=== PATIENT | female | born 1990 | race Caucasian/White ===

== ENCOUNTER 2017-04-01 00:15 | Emergency (ER) | payer MEDICAID ==
[2017-04-01 00:27] VITALS: BP 149/87
[2017-04-01] MEDS ORDERED: Ketorolac 60 MG/2 ML SDV IM ONE (00:58)
--- NOTE | 2017-04-01 01:01 | EDM.PDOC ---
ED HPI GENERAL MEDICAL PROBLEM - General Chief Complaint: Upper Extremity Injury/Pain Stated Complaint: R HAND INJURY Time Seen by Provider: 04/01/17 00:53 Source of Information: Reports: Patient, Old Records, RN Notes Reviewed History Limitations: Reports: No Limitations - History of Present Illness INITIAL COMMENTS - FREE TEXT/NARRATIVE: 26-year-old female presents emergency department day complaint of right wrist pain she does have a history of navicular fracture was playing volleyball earlier this evening and now she is experiencing pain and numbness tingling in the thumb. Right Wrist Pain Score (Numeric/FACES): 8 - Related Data Allergies Allergy/AdvReac Type Severity Reaction Status Date / Time acetaminophen Allergy Vomiting Verified 04/01/17 00:27 [From Darvocet-N 100] codeine phosphate Allergy Rash Verified 04/01/17 00:27 [From Tylenol-Codeine #3] propoxyphene napsylate Allergy Vomiting Verified 04/01/17 00:27 [From Darvocet-N 100] doxycycline AdvReac Nausea and Verified 04/01/17 00:27 Vomiting Home Meds: Home Meds Cyanocobalamin (Vitamin B-12) [Vitamin B-12] 1,000 mcg PO Q21D 11/26/13 [History ] Levonorgestrel [Mirena] 1 each IY ONCALL 11/26/13 [History] Gabapentin [Gabapentin] 600 mg PO DAILY 02/13/15 [History] traMADol HCl [Tramadol HCl] 50 mg PO DAILY 02/13/15 [History] Past Medical History Genitourinary History: Reports: UTI, 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: Musculoskeletal History: Reports: Back Pain, Chronic, Fracture, Other (See Below ) Other Musculoskeletal History: Current fracture right wrist Hematologic History: Reports: B12 Deficiency - Infectious Disease History Infectious Disease History: Reports: Chicken Pox - Past Surgical History HEENT Surgical History: Reports: Oral Surgery GI Surgical History: Reports: Bariatric Procedure, Cholecystectomy Other Musculoskeletal Surgeries/Procedures:: BULDGING DISC Social & Family History - Tobacco Use Smoking Status *Q: Unknown Ever Smoked Years of Tobacco use: 15 Packs/Tins Daily: 0.5 Used Tobacco, but Quit: No Month Tobacco Last Used: JANUARY Second Hand Smoke Exposure: Yes - Caffeine Use Caffeine Use: Reports: Energy Drinks, Soda Caffeine Use Comment: 6 pack day - Alcohol Use Days Per Week of Alcohol Use: 0 - Recreational Drug Use Recreational Drug Use: No Review of Systems - Review of Systems Review Of Systems: See Below Musculoskeletal: Reports: Joint Pain (Wrist pain) ED EXAM, GENERAL - Physical Exam Exam: See Below Free Text/Narrative:: Examination of the right wrist I don't appreciate a erythema there is no edema she is tender both anterior and posterior aspects of the wrist she has limited range of motion secondary to pain, radial pulse is +2 there is no tenderness at the elbow Exam Limited By: No Limitations General Appearance: Alert, WD/WN, No Apparent Distress Course - Vital Signs Last Recorded V/S: Last Vital Signs Temp 97.5 F 04/01/17 00:24 Pulse 86 04/01/17 00:24 Resp 15 04/01/17 00:24 BP 149/87 H 04/01/17 00:24 Pulse Ox 100 04/01/17 00:24 - Orders/Labs/Meds Orders: Active Orders 24 hr Category Date Time Status Wrist 2V Rt [CR] Stat Exams 04/01/17 00:58 Taken Meds: Medications Discontinued Medications Generic Name Dose Route Start Last Admin Trade Name Gama PRN Reason Stop Dose Admin Ketorolac Tromethamine 60 mg 04/01/17 00:58 04/01/17 01:03 Toradol IM 04/01/17 00:59 60 mg ONETIME ONE Administration Departure - Departure Time of Disposition: 01:35 Disposition: Home, Self-Care 01 Condition: Good Clinical Impression: Right wrist pain - Discharge Information Referrals: Faith Douglas NP [Primary Care Provider] - Forms: ED Department Discharge Additional Instructions: Use hydrocodone as needed for pain control, please follow-up with orthopedics next week they will call you with an appointment time - My Orders Last 24 Hours: My Active Orders 04/01/17 00:58 Wrist 2V Rt [CR] Stat - Assessment/Plan Last 24 Hours: My Active Orders 04/01/17 00:58 Wrist 2V Rt [CR] Stat Plan: Assessment Acuity = acute Site and laterality = possible ulnar styloid fracture Etiology = secondary trauma Manifestations = pain Location of injury = Home Lab values = does have a history of a complex fracture of both radius and ulnar , new film difficult to tell if there is a new fracture with all the old healing there are bone fragments around the styloid process official read radiology is pending Plan She is placed in ulnar gutter splint have her follow-up with orthopedics next week, total #20 hydrocodone written for pain control Patient was in agreement with the plan all questions were answered, they were instructed to return to the emergency department or call for worsening symptoms. This note was dictated using Proximetry voice recognition software please call with any questions.
--- NOTE | 2017-04-01 08:42 | CR ---
Wrist 2V Rt HISTORY: Pain COMPARISON: 03/04/2016. FINDINGS: Old injury to the ulnar styloid. The previously seen radial metaphyseal fracture last year has healed. No new fracture seen.
== END 2017-04-01 01:48 | disposition home or self-care (01) ==
LOC: JP.ED 00:15
DX: M25.531 Pain in right wrist (principal); Z87.440 Personal history of urinary (tract) infections; Z98.84 Bariatric surgery status; Z90.49 Acquired absence of other specified parts of digestive tract; Z98.890 Other specified postprocedural states; Z79.899 Other long term (current) drug therapy; Z88.1 Allergy status to other antibiotic agents; Z88.5 Allergy status to narcotic agent; Z88.8 Allergy status to other drugs, medicaments and biological substances; Y93.68 Activity, volleyball (beach) (court)
CPT/HCPCS: 29125; 73100; 96372; 99284; J1885

== ENCOUNTER 2017-04-23 19:44 | Emergency (ER) | payer MEDICAID ==
[2017-04-23 19:57] VITALS: BP 122/76
--- NOTE | 2017-04-23 20:12 | EDM.PDOC ---
ED HPI GENERAL MEDICAL PROBLEM - General Chief Complaint: Upper Extremity Injury/Pain Stated Complaint: RIGHT ARM PAIN Time Seen by Provider: 04/23/17 20:08 Source of Information: Reports: Patient History Limitations: Reports: No Limitations - History of Present Illness INITIAL COMMENTS - FREE TEXT/NARRATIVE: With right wrist fracture in 2016. Now with new fracture about 3 1/2 weeks ago. Was supposed to be wearing a splint but was not. Stephanie tripped over her dog landing on the door frame about 7:30pm stephanie. Onset: Today Onset Date: 04/23/17 Onset Time: 19:30 Location: Reports: Upper Extremity, Right Quality: Reports: Sharp, Stabbing Severity: Mild Improves with: Reports: Rest Worsens with: Reports: None Context: Reports: Trauma Associated Symptoms: Reports: No Other Symptoms right wrist Pain Score (Numeric/FACES): 10 - Related Data Allergies Allergy/AdvReac Type Severity Reaction Status Date / Time acetaminophen Allergy Vomiting Verified 04/23/17 20:01 [From Darvocet-N 100] codeine phosphate Allergy Rash Verified 04/23/17 20:01 [From Tylenol-Codeine #3] propoxyphene napsylate Allergy Vomiting Verified 04/23/17 20:01 [From Darvocet-N 100] doxycycline AdvReac Nausea and Verified 04/23/17 20:01 Vomiting Home Meds: Home Meds Cyanocobalamin (Vitamin B-12) [Vitamin B-12] 1,000 mcg IM Q21D 11/26/13 [History ] Levonorgestrel [Mirena] 1 each IY ONCALL 11/26/13 [History] Past Medical History Cardiovascular History: Reports: None Respiratory History: Reports: None Genitourinary History: Reports: UTI, 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: Musculoskeletal History: Reports: Back Pain, Chronic, Fracture, Other (See Below ) Other Musculoskeletal History: Current fracture right wrist Neurological History: Reports: None Psychiatric History: Reports: None Endocrine/Metabolic History: Reports: None Hematologic History: Reports: B12 Deficiency Immunologic History: Reports: None Oncologic (Cancer) History: Reports: None Dermatologic History: Reports: None - Infectious Disease History Infectious Disease History: Reports: None - Past Surgical History Head Surgeries/Procedures: Reports: None HEENT Surgical History: Reports: Oral Surgery Cardiovascular Surgical History: Reports: None Respiratory Surgical History: Reports: None GI Surgical History: Reports: Bariatric Procedure, Cholecystectomy Endocrine Surgical History: Reports: None Neurological Surgical History: Reports: None Musculoskeletal Surgical History: Reports: Other (See Below) Other Musculoskeletal Surgeries/Procedures:: BULDGING DISC Oncologic Surgical History: Reports: None Dermatological Surgical History: Reports: None Social & Family History - Tobacco Use Smoking Status *Q: Current Every Day Smoker Years of Tobacco use: 15 Packs/Tins Daily: 0.5 Used Tobacco, but Quit: No Month Tobacco Last Used: JANUARY Second Hand Smoke Exposure: Yes - Caffeine Use Caffeine Use: Reports: Coffee, Energy Drinks, Soda, Tea Caffeine Use Comment: 6 pack day - Alcohol Use Days Per Week of Alcohol Use: 0 - Recreational Drug Use Recreational Drug Use: No Review of Systems - Review of Systems Review Of Systems: See Below Constitutional: Reports: No Symptoms Respiratory: Reports: No Symptoms Cardiovascular: Reports: No Symptoms Musculoskeletal: Reports: Arm Pain Skin: Reports: No Symptoms ED EXAM, GENERAL - Physical Exam Exam: See Below Exam Limited By: No Limitations General Appearance: Alert, WD/WN, No Apparent Distress Extremities: Arm Pain (over the ulna with palpation) Neurological: Alert, Oriented, CN II-XII Intact, Normal Cognition, Normal Gait, Normal Reflexes, No Motor/Sensory Deficits Skin Exam: Warm, Dry, Intact, Normal Color, No Rash Course - Vital Signs Last Recorded V/S: Last Vital Signs Temp 97.2 F 04/23/17 19:56 Pulse 77 04/23/17 19:56 Resp 16 04/23/17 19:56 BP 122/76 04/23/17 19:56 Pulse Ox 99 04/23/17 19:56 - Orders/Labs/Meds Orders: Active Orders 24 hr Category Date Time Status Wrist 2V Rt [CR] Stat Exams 04/23/17 20:12 Taken Departure - Departure Time of Disposition: 20:31 Disposition: Home, Self-Care 01 Condition: Good Clinical Impression: Wrist fracture, right Qualifiers: Encounter type: sequela Fracture type: closed Qualified Code(s): S62.101S - Fracture of unspecified carpal bone, right wrist, sequela - Discharge Information Instructions: Cast or Splint Care, [id number] Referrals: PCP,None [Primary Care Provider] - Forms: ED Department Discharge Additional Instructions: Xray reveals continued ulnar stylus fracture. No change from previous film. Stressed the need to pt to wear her splint and followup with orthopedics to discuss casting. Pt does not take calcium and does smoke so recommend Calcium supplement as well as smoking cessation. Will call orthopedics on Tuesday for followup. - Problem List & Annotations (1) Right wrist pain SNOMED Code(s): 63872875 Code(s): M25.531 - PAIN IN RIGHT WRIST Status: Acute Priority: Low Current Visit: No - My Orders Last 24 Hours: My Active Orders 04/23/17 20:12 Wrist 2V Rt [CR] Stat - Assessment/Plan Last 24 Hours: My Active Orders 04/23/17 20:12 Wrist 2V Rt [CR] Stat
--- NOTE | 2017-04-25 09:22 | CR ---
Wrist 2V Rt INDICATION: fall, hx of wrist fracture about 3 weeks ago COMPARISON: 04/01/2017 FINDINGS: 3 views. Bones are osteopenic. Ulnar styloid fracture again noted. Overall, no interval change. If symptoms persist consider MRI.
== END 2017-04-23 20:45 | disposition left against medical advice (07) ==
LOC: JP.ED 19:44
DX: S52.611S Displaced fracture of right ulna styloid process, sequela (principal); F17.210 Nicotine dependence, cigarettes, uncomplicated; Z88.6 Allergy status to analgesic agent; Z88.5 Allergy status to narcotic agent; Z88.1 Allergy status to other antibiotic agents; Z87.440 Personal history of urinary (tract) infections; W01.0XXS Fall on same level from slipping, tripping and stumbling without subsequent striking against object, sequela
CPT/HCPCS: 73100-26-RT; 73100-RT; 99284

== ENCOUNTER 2017-07-14 12:31 | Emergency (ER) | payer MEDICAID ==
[2017-07-14 12:50] VITALS: BP 127/69
--- NOTE | 2017-07-14 13:19 | EDM.PDOC ---
ED HPI GENERAL MEDICAL PROBLEM - General Chief Complaint: Back Pain or Injury Stated Complaint: BACK SPASMS Time Seen by Provider: 07/14/17 13:12 Source of Information: Reports: Patient History Limitations: Reports: No Limitations - History of Present Illness INITIAL COMMENTS - FREE TEXT/NARRATIVE: Pt arrived with pain in her lower back. She has pain radiating down the rt leg. Onset: Gradual Duration: Day(s):, Other Associated Symptoms: Reports: No Other Symptoms Right Lower Back Pain Score (Numeric/FACES): 9 - Related Data Allergies Allergy/AdvReac Type Severity Reaction Status Date / Time acetaminophen Allergy Vomiting Verified 07/14/17 12:50 [From Darvocet-N 100] codeine phosphate Allergy Rash Verified 07/14/17 12:50 [From Tylenol-Codeine #3] propoxyphene napsylate Allergy Vomiting Verified 07/14/17 12:50 [From Darvocet-N 100] doxycycline AdvReac Nausea and Verified 07/14/17 12:50 Vomiting Home Meds: Home Meds NK [No Known Home Meds] 07/14/17 [History] Past Medical History Cardiovascular History: Reports: None Respiratory History: Reports: None Genitourinary History: Reports: UTI, 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: Musculoskeletal History: Reports: Back Pain, Chronic, Fracture, Other (See Below ) Other Musculoskeletal History: Current fracture right wrist Neurological History: Reports: None Psychiatric History: Reports: None Endocrine/Metabolic History: Reports: None Hematologic History: Reports: B12 Deficiency Immunologic History: Reports: None Oncologic (Cancer) History: Reports: None Dermatologic History: Reports: None - Infectious Disease History Infectious Disease History: Reports: None - Past Surgical History HEENT Surgical History: Reports: Oral Surgery Respiratory Surgical History: Reports: None GI Surgical History: Reports: Bariatric Procedure, Cholecystectomy Musculoskeletal Surgical History: Reports: Other (See Below) Other Musculoskeletal Surgeries/Procedures:: R L4, L5 BULDGING DISC REPAIR Social & Family History - Tobacco Use Smoking Status *Q: Unknown Ever Smoked Years of Tobacco use: 15 Packs/Tins Daily: 0.5 Used Tobacco, but Quit: No Month Tobacco Last Used: JANUARY Second Hand Smoke Exposure: Yes - Caffeine Use Caffeine Use: Reports: Coffee, Energy Drinks, Soda, Tea Caffeine Use Comment: 6 pack day - Alcohol Use Days Per Week of Alcohol Use: 0 - Recreational Drug Use Recreational Drug Use: No ED ROS GENERAL - Review of Systems Review Of Systems: See Below Constitutional: Reports: No Symptoms HEENT: Reports: No Symptoms Respiratory: Reports: No Symptoms Cardiovascular: Reports: No Symptoms Endocrine: Reports: No Symptoms GI/Abdominal: Reports: No Symptoms : Reports: No Symptoms Musculoskeletal: Reports: Other (pain in lower back. ) Skin: Reports: No Symptoms Neurological: Reports: Other ( radiculkar pain down the rt leg. ) Psychiatric: Reports: No Symptoms ED EXAM,LOWER BACK PAIN/INJURY - Physical Exam Exam: See Below Text/Narrative:: pt arrived with low back pain and pain over the rt buttock shooting down the back of her rt leg. She does not note weakness in the rt leg. She has had previous back surgery for a disc. She has been having symptoms for awhile but they are worse the last few days. Pt did lift her mattresses and she felt like she injuired her back. Exam Limited By: No Limitations General Appearance: Alert, Moderate Distress Ears: Normal TMs Nose: Normal Inspection Throat/Mouth: Normal Inspection Head: Atraumatic Neck: Normal Inspection Respiratory/Chest: No Respiratory Distress Cardiovascular: Regular Rate, Rhythm GI/Abdominal: Soft, Non-Tender Rectal (Female) Exam: Deferred Back Exam: Other (pt is tender over the lower lumbar area. she has a positive straight leg raising sign. ) Extremities: Normal Inspection Neurological: Alert Course - Vital Signs Last Recorded V/S: Last Vital Signs Temp 36.0 C 07/14/17 12:46 Pulse 100 07/14/17 12:46 Resp 14 07/14/17 12:46 BP 127/69 07/14/17 12:46 Pulse Ox 100 07/14/17 12:46 - Orders/Labs/Meds Meds: Medications Discontinued Medications Generic Name Dose Route Start Last Admin Trade Name Freq PRN Reason Stop Dose Admin Cyclobenzaprine HCl 10 mg 07/14/17 13:20 07/14/17 13:34 Flexeril PO 07/14/17 13:21 10 mg ONETIME ONE Administration Ketorolac Tromethamine 60 mg 07/14/17 13:20 07/14/17 13:33 Toradol IM 07/14/17 13:21 60 mg ONETIME ONE Administration - Re-Assessments/Exams Free Text/Narrative Re-Assessment/Exam: 07/14/17 14:31 pt was given torodol 60mg im and flexeril 10mg . Her pain is more tolerable. Departure - Departure Time of Disposition: 14:18 Disposition: Home, Self-Care 01 Condition: Fair Clinical Impression: Lumbar disc disease - Discharge Information Referrals: PCP,None [Primary Care Provider] - Forms: ED Department Discharge Care Plan Goals: rest, moist heat, or ice to lumbar area. flexeril 10mg bid to relax muscles, torodol 10mg q6h for pain. Hod[place] 5/325 q6h prn for severe pain #8 appt in [address] Elías Wood
[2017-07-14] MEDS ORDERED: Cyclobenzaprine 10 MG Tab PO ONE (13:20)
[2017-07-14] MEDS ORDERED: Ketorolac 60 MG/2 ML SDV IM ONE (13:20)
== END 2017-07-14 14:43 | disposition home or self-care (01) ==
LOC: JP.ED 12:31
DX: M51.86 Other intervertebral disc disorders, lumbar region (principal); Z88.1 Allergy status to other antibiotic agents; Z88.5 Allergy status to narcotic agent; Z88.8 Allergy status to other drugs, medicaments and biological substances
CPT/HCPCS: 96372; 99283; A9270; J1885

== ENCOUNTER 2018-01-28 11:38 | Emergency (ER) | payer MEDICAID ==
[2018-01-28 11:53] VITALS: BP 138/85
--- NOTE | 2018-01-28 13:05 | EDM.PDOC ---
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 She reports removal of mirena IUD 6 weeks ago without complication. She states she has soaked a super tampon in two hours. She reports unprotected intercourse since removal of IUD. - Related Data Allergies Allergy/AdvReac Type Severity Reaction Status Date / Time acetaminophen Allergy Vomiting Verified 01/28/18 11:52 [From Darvocet-N 100] codeine phosphate Allergy Rash Verified 01/28/18 11:52 [From Tylenol-Codeine #3] propoxyphene napsylate Allergy Vomiting Verified 01/28/18 11:52 [From Darvocet-N 100] doxycycline AdvReac Nausea and Verified 01/28/18 11:52 Vomiting Home Meds: Home Meds Gabapentin [Neurontin] 300 mg PO TID 01/28/18 [History] Multivitamin [Multivitamins] 1 tab PO DAILY 01/28/18 [History] Past Medical History Cardiovascular History: Reports: None Respiratory History: Reports: None Genitourinary History: Reports: UTI, Recurrent 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: Musculoskeletal History: Reports: Back Pain, Chronic, Fracture, Other (See Below ) Other Musculoskeletal History: Current fracture right wrist Neurological History: Reports: None Psychiatric History: Reports: None Endocrine/Metabolic History: Reports: None Hematologic History: Reports: B12 Deficiency Immunologic History: Reports: None Oncologic (Cancer) History: Reports: None Dermatologic History: Reports: None - Infectious Disease History Infectious Disease History: Reports: None - Past Surgical History Head Surgeries/Procedures: Reports: None HEENT Surgical History: Reports: Oral Surgery Respiratory Surgical History: Reports: None GI Surgical History: Reports: Bariatric Procedure, Cholecystectomy Musculoskeletal Surgical History: Reports: Other (See Below) Other Musculoskeletal Surgeries/Procedures:: R L4, L5 BULDGING DISC REPAIR Social & Family History - Tobacco Use Smoking Status *Q: Current Every Day Smoker Years of Tobacco use: 15 Packs/Tins Daily: 0.5 - Caffeine Use Caffeine Use: Reports: Coffee, Energy Drinks, Soda Caffeine Use Comment: 6 pack day - Recreational Drug Use Recreational Drug Use: Yes Recreational Drug Type: Reports: Methamphetamine Recreational Drug Last Use: 01/26/19 ED ROS GENERAL - Review of Systems Review Of Systems: See Below Constitutional: Denies: Fever, Chills, Malaise, Weakness HEENT: Reports: No Symptoms Respiratory: Reports: No Symptoms Cardiovascular: Reports: No Symptoms Endocrine: Reports: No Symptoms GI/Abdominal: Reports: Abdominal Pain, Other (She complains of cramping abdominal pain. ) : Reports: Irregular Menses, Other (Increased vaginal bleeding, soaking tampon in 2 hours. ). Denies: Flank Pain, Frequency, Hematuria, Urgency Musculoskeletal: Reports: No Symptoms Skin: Reports: No Symptoms Neurological: Reports: No Symptoms Psychiatric: Reports: No Symptoms Hematologic/Lymphatic: Reports: No Symptoms Immunologic: Reports: No Symptoms Free Text/Narrative/Comment: A2 ED EXAM, RENAL/ - Physical Exam Exam: See Below Text/Narrative:: Ros presents today for complaints of increased bright red vaginal bleeding for 24 hours. Exam Limited By: No Limitations General Appearance: Alert, WD/WN, No Apparent Distress Eye Exam: Bilateral Eye: EOMI, Normal Inspection, PERRL Ears: Normal External Exam, Normal Canal, Hearing Grossly Normal, Normal TMs Nose: Normal Inspection, Normal Mucosa, No Blood Throat/Mouth: Normal Inspection, Normal Lips, Normal Gums, Normal Oropharynx, Normal Voice, No Airway Compromise Head: Atraumatic, Normocephalic Neck: Normal Inspection, Supple, Non-Tender, Full Range of Motion. No: Lymphadenopathy (R), Lymphadenopathy (L) Respiratory/Chest: No Respiratory Distress, Lungs Clear, Normal Breath Sounds, No Accessory Muscle Use, Chest Non-Tender Cardiovascular: Normal Peripheral Pulses, Regular Rate, Rhythm, No Edema, No Murmur, No Rub GI/Abdominal: Normal Bowel Sounds, Soft, Non-Tender, No Organomegaly, No Distention, No Mass Back Exam: Normal Inspection, Full Range of Motion. No: CVA Tenderness (R), CVA Tenderness (L) Extremities: Normal Inspection, Normal Range of Motion, Non-Tender, No Pedal Edema, Normal Capillary Refill Neurological: Alert, Oriented, CN II-XII Intact, Normal Cognition, Normal Gait, Normal Reflexes, No Motor/Sensory Deficits Psychiatric: Normal Affect, Normal Mood Skin Exam: Warm, Dry, Intact, Normal Color, No Rash Lymphatic: No Adenopathy Course - Vital Signs Last Recorded V/S: Last Vital Signs Temp 35.7 C 01/28/18 11:53 Pulse 87 01/28/18 11:53 Resp 13 01/28/18 11:53 BP 138/85 01/28/18 11:53 Pulse Ox 96 01/28/18 11:53 - Orders/Labs/Meds Orders: Active Orders 24 hr Category Date Time Status Pelvis Non OB Comp [US] Stat Exams 01/28/18 12:49 Taken HCG QUALITATIVE,URINE [URCHEM] Stat Lab 01/28/18 14:08 Ordered UA W/MICROSCOPIC [URIN] Stat Lab 01/28/18 14:05 Ordered Labs: Laboratory Tests 01/28/18 01/28/18 01/28/18 Range/Units 12:59 12:59 14:05 WBC 5.6 (4.5-11.0) K/uL RBC 4.26 (3.30-5.50) M/uL Hgb 13.0 (12.0-15.0) g/dL Hct 39.2 (36.0-48.0) % MCV 92 (80-98) fL MCH 31 (27-31) pg MCHC 33 (32-36) % Plt Count 277 (150-400) K/uL Neut % (Auto) 61 (36-66) % Lymph % (Auto) 24 (24-44) % [place] % (Auto) 10 H (2-6) % Eos % (Auto) 6 H (2-4) % Baso % (Auto) 1 (0-1) % Sodium 139 L (140-148) mmol/L Potassium 3.8 (3.6-5.2) mmol/L Chloride 106 (100-108) mmol/L Carbon Dioxide 26 (21-32) mmol/L Anion Gap 10.8 (5.0-14.0) mmol/L BUN 9 (7-18) mg/dL Creatinine 0.9 (0.6-1.0) mg/dL Est Cr Clr Drug Dosing 93.04 mL/min Estimated GFR (MDRD) > 60 (>60) Glucose 126 H (74-106) mg/dL Calcium 8.8 (8.5-10.1) mg/dL Urine Color Yellow Urine Appearance Cloudy Urine pH 6.0 (4.5-8.0) Ur Specific [place] 1.020 (1.008-1.030) Urine Protein Negative (NEGATIVE) mg/dL Urine Glucose (UA) Normal (NEGATIVE) mg/dL Urine Ketones Negative (NEGATIVE) mg/dL Urine Occult Blood Large (NEGATIVE) Urine Nitrite Negative (NEGATIVE) Urine Bilirubin Small (NEGATIVE) Urine Urobilinogen 1 (NORMAL) mg/dL Ur Leukocyte Esterase Negative (NEGATIVE) Urine RBC 10-20 H (0-5) Urine WBC 5-10 H (0-5) Ur Epithelial Cells Few Amorphous Sediment Few Urine Bacteria Few Urine Mucus Few Urine HCG, Qual 01/28/18 Range/Units 14:08 WBC (4.5-11.0) K/uL RBC (3.30-5.50) M/uL Hgb (12.0-15.0) g/dL Hct (36.0-48.0) % MCV (80-98) fL MCH (27-31) pg MCHC (32-36) % Plt Count (150-400) K/uL Neut % (Auto) (36-66) % Lymph % (Auto) (24-44) % [place] % (Auto) (2-6) % Eos % (Auto) (2-4) % Baso % (Auto) (0-1) % Sodium (140-148) mmol/L Potassium (3.6-5.2) mmol/L Chloride (100-108) mmol/L Carbon Dioxide (21-32) mmol/L Anion Gap (5.0-14.0) mmol/L BUN (7-18) mg/dL Creatinine (0.6-1.0) mg/dL Est Cr Clr Drug Dosing mL/min Estimated GFR (MDRD) (>60) Glucose (74-106) mg/dL Calcium (8.5-10.1) mg/dL Urine Color Urine Appearance Urine pH (4.5-8.0) Ur Specific [place] (1.008-1.030) Urine Protein (NEGATIVE) mg/dL Urine Glucose (UA) (NEGATIVE) mg/dL Urine Ketones (NEGATIVE) mg/dL Urine Occult Blood (NEGATIVE) Urine Nitrite (NEGATIVE) Urine Bilirubin (NEGATIVE) Urine Urobilinogen (NORMAL) mg/dL Ur Leukocyte Esterase (NEGATIVE) Urine RBC (0-5) Urine WBC (0-5) Ur Epithelial Cells Amorphous Sediment Urine Bacteria Urine Mucus Urine HCG, Qual Negative Lab work reviewed. Meds: Medications Discontinued Medications Generic Name Dose Route Start Last Admin Trade Name Gama PRN Reason Stop Dose Admin Ibuprofen 800 mg 01/28/18 14:04 01/28/18 14:11 Motrin PO 01/28/18 14:05 800 mg ONETIME ONE Administration - Radiology Interpretation Free Text/Narrative:: US tech report, no acute or abnormal findings noted. Departure - Departure Time of Disposition: 14:24 Disposition: Home, Self-Care 01 Condition: Good Clinical Impression: Abnormal vaginal bleeding - Discharge Information Instructions: Dysfunctional Uterine Bleeding Referrals: PCP,None [Primary Care Provider] - Forms: ED Department Discharge Additional Instructions: You have been evaluated and treated for abnormal vaginal bleeding. You can take ibuprofen for pain and cramping. Keep yourself well hydrated. Your lab work today was normal and does not show any anemia at this time. The Ultrasound of your pelvis did not show any abnormalities. Urine test negative. It would be best for you to follow up with a woman's health provider, FOOD AND BEVERAGE COORDINATOR provider in the next 7 to 14 days for the abnormal vaginal bleeding. Return for worsening, issues or concerns. - My Orders Last 24 Hours: My Active Orders 01/28/18 12:49 Pelvis Non OB Comp [US] Stat 01/28/18 14:05 UA W/MICROSCOPIC [URIN] Stat 01/28/18 14:08 HCG QUALITATIVE,URINE [URCHEM] Stat - Assessment/Plan Last 24 Hours: My Active Orders 01/28/18 12:49 Pelvis Non OB Comp [US] Stat 01/28/18 14:05 UA W/MICROSCOPIC [URIN] Stat 01/28/18 14:08 HCG QUALITATIVE,URINE [URCHEM] Stat Assessment:: Abnormal vaginal bleeding Plan: Patietn evaluated and treated for abnormal vaginal bleeding. Take ibuprofen for pain and cramping. Keep well hydrated. Lab work today was normal and does not show any anemia at this time. The Ultrasound of pelvis did not show any abnormalities. It would be best for her to follow up with a woman's health provider, FOOD AND BEVERAGE COORDINATOR provider in the next 7 to 14 days for the abnormal vaginal bleeding. Return for worsening, issues or concerns.
[2018-01-28] MEDS ORDERED: Ibuprofen 800 MG Tab PO ONE (14:04)
--- NOTE | 2018-01-30 10:04 | US ---
Pelvis Non OB Comp INDICATION: abnormal vaginal bleeding TECHNIQUE: Transabdominal and transvaginal pelvic ultrasound performed. COMPARISON: Nothing recent. FINDINGS: The uterus is unremarkable. No evidence of mass. Endometrium: 8 mm. Ovaries and adnexa are unremarkable. No masses seen. Blood flow to both ovaries documented with color Doppler. No free fluid seen in the pelvis. IMPRESSION: Negative pelvic ultrasound.
== END 2018-01-28 14:45 | disposition home or self-care (01) ==
LOC: JP.ED 11:38
DX: N39.3 Stress incontinence (female) (male) (principal); F17.210 Nicotine dependence, cigarettes, uncomplicated; Z88.8 Allergy status to other drugs, medicaments and biological substances
CPT/HCPCS: 36415; 76856; 80048; 81001; 81025; 85025; 99284; A9270

== ENCOUNTER 2019-01-20 17:46 | Emergency (ER) | payer MEDICAID ==
[2019-01-20 18:02] VITALS: BP 101/74
[2019-01-20] MEDS ORDERED: Ketorolac 60 MG/2 ML SDV IM ONE (18:28)
[2019-01-20] MEDS ORDERED: Cyclobenzaprine 10 MG Tab PO ONE (18:29)
--- NOTE | 2019-01-20 18:33 | EDM.PDOC ---
ED HPI GENERAL MEDICAL PROBLEM - General Chief Complaint: Back Pain or Injury Stated Complaint: BAD BACK NOT AN ACCIDENT Time Seen by Provider: 01/20/19 18:12 Source of Information: Reports: Patient History Limitations: Reports: No Limitations - History of Present Illness INITIAL COMMENTS - FREE TEXT/NARRATIVE: 28 yo presents to ER with lumbar back pain. She does have hx of chronic pain but she was moving furniture last evening and strained her back. She denies loss of bowel or bladder, saddle numbness or particular traumatic injury. She has taken ibuprofen, tylenol abd naproxen with little relief Middle Back Pain Score (Numeric/FACES): 8 - Related Data Allergies Allergy/AdvReac Type Severity Reaction Status Date / Time acetaminophen Allergy Vomiting Verified 01/28/18 11:52 [From Darvocet-N 100] codeine phosphate Allergy Rash Verified 01/28/18 11:52 [From Tylenol-Codeine #3] propoxyphene napsylate Allergy Vomiting Verified 01/28/18 11:52 [From Darvocet-N 100] doxycycline AdvReac Nausea and Verified 01/28/18 11:52 Vomiting Home Meds: Home Meds Gabapentin [Neurontin] 300 mg PO BID 01/28/18 [History] Multivitamin [Multivitamins] 1 tab PO DAILY 01/28/18 [History] Past Medical History Cardiovascular History: Reports: None Respiratory History: Reports: None Genitourinary History: Reports: UTI, Recurrent 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: Musculoskeletal History: Reports: Back Pain, Chronic, Fracture, Other (See Below ) Other Musculoskeletal History: Current fracture right wrist Neurological History: Reports: None Psychiatric History: Reports: None Endocrine/Metabolic History: Reports: None Hematologic History: Reports: B12 Deficiency Immunologic History: Reports: None Oncologic (Cancer) History: Reports: None Dermatologic History: Reports: None - Infectious Disease History Infectious Disease History: Reports: None - Past Surgical History Head Surgeries/Procedures: Reports: None HEENT Surgical History: Reports: Oral Surgery Respiratory Surgical History: Reports: None GI Surgical History: Reports: Bariatric Procedure, Cholecystectomy Musculoskeletal Surgical History: Reports: Other (See Below) Other Musculoskeletal Surgeries/Procedures:: R L4, L5 BULDGING DISC REPAIR Social & Family History - Tobacco Use Smoking Status *Q: Current Every Day Smoker Years of Tobacco use: 20 Packs/Tins Daily: 0.5 - Caffeine Use Caffeine Use: Reports: Coffee, Soda Caffeine Use Comment: 6 pack day - Recreational Drug Use Recreational Drug Use: No ED ROS GENERAL - Review of Systems Review Of Systems: See Below Constitutional: Denies: Fever, Chills Respiratory: Denies: Shortness of Breath, Wheezing Cardiovascular: Denies: Chest Pain ED EXAM,LOWER BACK PAIN/INJURY - Physical Exam Exam: See Below Exam Limited By: Intoxication General Appearance: Alert, WD/WN, No Apparent Distress Respiratory/Chest: No Respiratory Distress, Lungs Clear, Normal Breath Sounds, No Accessory Muscle Use, Chest Non-Tender Cardiovascular: Regular Rate, Rhythm, No Murmur Back Exam: Muscle Spasm, Paraspinal Tenderness (bilateral L4-L6 then more to left lower area). No: CVA Tenderness (R), CVA Tenderness (L), Vertebral Tenderness Neurological: Alert Course - Vital Signs Last Recorded V/S: Last Vital Signs Temp 35.3 C 01/20/19 18:01 Pulse 84 01/20/19 18:01 Resp 16 01/20/19 18:01 BP 101/74 01/20/19 18:01 Pulse Ox 97 01/20/19 18:01 - Orders/Labs/Meds Meds: Medications Discontinued Medications Generic Name Dose Route Start Last Admin Trade Name Chrisq PRN Reason Stop Dose Admin Cyclobenzaprine HCl 10 mg 01/20/19 18:29 01/20/19 18:34 Flexeril PO 01/20/19 18:30 10 mg ONETIME ONE Administration Ketorolac Tromethamine 60 mg 01/20/19 18:28 01/20/19 18:34 Toradol IM 01/20/19 18:29 60 mg ONETIME ONE Administration - Re-Assessments/Exams Free Text/Narrative Re-Assessment/Exam: 01/20/19 19:24 pain relief with IM and oral medications Departure - Departure Time of Disposition: 19:24 Disposition: Home, Self-Care 01 Condition: Good Clinical Impression: Paraspinal muscle spasm - Discharge Information *PRESCRIPTION DRUG MONITORING PROGRAM REVIEWED*: No *COPY OF PRESCRIPTION DRUG MONITORING REPORT IN PATIENT HINA: No Instructions: Muscle Cramps and Spasms, [id number] Referrals: Wiliam Morse Sr, MD [Primary Care Provider] - Forms: ED Department Discharge Additional Instructions: cyclobenzaprine 10 mg up to three times per day for muscle spasm do not mix this medication with alcohol or you could stop breathing follow-up with your primary care doctor
== END 2019-01-20 19:34 | disposition home or self-care (01) ==
LOC: JP.ED 17:46
DX: M62.830 Muscle spasm of back (principal); Z88.6 Allergy status to analgesic agent; Z88.1 Allergy status to other antibiotic agents; Z79.899 Other long term (current) drug therapy; F17.210 Nicotine dependence, cigarettes, uncomplicated
CPT/HCPCS: 96372; 99283; A9270; J1885

== ENCOUNTER 2020-10-19 14:13 | Emergency (ER) | payer MEDICAID ==
[2020-10-19] MEDS ORDERED: Ketorolac 60 MG/2 ML SDV IM ONE (14:36)
[2020-10-19] MEDS ORDERED: Diphtheria,Pertussis(Acell),Tetanus Vaccine 0.5 ML Syringe IM ONE (14:37)
[2020-10-19] MEDS ORDERED: Amoxicillin/Clavulanate K 875-125 MG Tab PO ONE (14:37)
[2020-10-19 14:40] VITALS: BP 119/66; PULSE 66
--- NOTE | 2020-10-19 14:44 | EDM.PDOC ---
ED HPI GENERAL MEDICAL PROBLEM - General Chief Complaint: Bite:Animal, Insect Stated Complaint: BITE BY A DOG RIGHT HAND Time Seen by Provider: 10/19/20 14:25 Source of Information: Reports: Patient, Old Records History Limitations: Reports: No Limitations - History of Present Illness INITIAL COMMENTS - FREE TEXT/NARRATIVE: 30 yo female presents with a dog bite to the dorsum of her R hand. She is not sure about her vaccination status and did not know who owned the dog that bit her. 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: Other (see below) (none) - Related Data Allergies Allergy/AdvReac Type Severity Reaction Status Date / Time acetaminophen Allergy Vomiting Verified 10/19/20 14:30 [From Darvocet-N 100] codeine phosphate Allergy Rash Verified 10/19/20 14:30 [From Tylenol-Codeine #3] propoxyphene napsylate Allergy Vomiting Verified 10/19/20 14:30 [From Darvocet-N 100] doxycycline AdvReac Nausea and Verified 10/19/20 14:30 Vomiting Home Meds: Home Meds Gabapentin [Neurontin] 300 mg PO BID 01/28/18 [History] Multivitamin [Multivitamins] 1 tab PO DAILY 01/28/18 [History] Buprenorphine/Naloxone [Buprenorphine-Naloxone 8 MG-2 MG] 1 tab PO DAILY 10/19/20 [History] Escitalopram [Lexapro] 1 tab PO DAILY 10/19/20 [History] Omeprazole 1 tab PO DAILY 10/19/20 [History] cloNIDine HCL [Clonidine HCl] 1 tab PO BID 10/19/20 [History] Past Medical History Cardiovascular History: Reports: None Respiratory History: Reports: None Genitourinary History: Reports: UTI, Recurrent 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: Musculoskeletal History: Reports: Back Pain, Chronic, Fracture, Other (See Below) Other Musculoskeletal History: Current fracture right wrist Neurological History: Reports: None Psychiatric History: Reports: None Endocrine/Metabolic History: Reports: None Hematologic History: Reports: B12 Deficiency Immunologic History: Reports: None Oncologic (Cancer) History: Reports: None Dermatologic History: Reports: None - Infectious Disease History Infectious Disease History: Reports: None - Past Surgical History Head Surgeries/Procedures: Reports: None HEENT Surgical History: Reports: Oral Surgery Cardiovascular Surgical History: Reports: None Respiratory Surgical History: Reports: None GI Surgical History: Reports: Bariatric Procedure, Cholecystectomy Endocrine Surgical History: Reports: None Neurological Surgical History: Reports: None Musculoskeletal Surgical History: Reports: Other (See Below) Other Musculoskeletal Surgeries/Procedures:: R L4, L5 BULDGING DISC REPAIR Oncologic Surgical History: Reports: None Dermatological Surgical History: Reports: None Social & Family History - Tobacco Use Tobacco Use Status *Q: Current Every Day Tobacco User Years of Tobacco use: 15 Packs/Tins Daily: 0.5 - Caffeine Use Caffeine Use: Reports: Coffee, Soda Caffeine Use Comment: 6 pack day ED ROS GENERAL - Review of Systems Review Of Systems: See Below Constitutional: Reports: No Symptoms Musculoskeletal: Reports: Hand Pain (R hand) Skin: Reports: Wound (3 puncture wounds to the dorsum of her R hand, no active bleeding. ) Neurological: Reports: No Symptoms ED EXAM, ANIMAL BITE - Physical Exam Exam: See Below Exam Limited By: No Limitations General Appearance: Alert, WD/WN, No Apparent Distress, Obese Extremities: No Pedal Edema, Limited Range of Motion (due to pain). No: Non- Tender, Pedal Edema, Increased Warmth, Redness Neurological: Alert, Oriented, CN II-XII Intact, Normal Cognition, No Motor/Sensory Deficits Psychiatric: Normal Affect, Normal Mood Skin Exam: Normal Color, Warm/Dry, Other (3 nonbleeding puncture wounds to the dorsum of the R hand. No or very subtle swelling only. ) Course - Vital Signs Last Recorded V/S: Last Vital Signs Temp 36.8 C 10/19/20 14:38 Pulse 66 10/19/20 14:38 Resp 20 10/19/20 14:38 BP 119/66 10/19/20 14:38 Pulse Ox 100 10/19/20 14:38 - Orders/Labs/Meds Orders: Active Orders 24 hr Category Date Time Status Vaccines to be Administered [RC] PER UNIT ROUTINE Care 10/19/20 14:37 Active Hand Comp Min 3V Rt [CR] Stat Exams 10/19/20 14:37 Ordered Meds: Medications Discontinued Medications Generic Name Dose Route Start Last Admin Trade Name Freq PRN Reason Stop Dose Admin Amoxicillin/Clavulanate Potassium 1 tab 10/19/20 14:37 10/19/20 14:51 Amoxicillin/Clavulanate K 875-125 Mg Tab PO 10/19/20 14:38 1 tab ONETIME ONE Administration Diphtheria/Tetanus/Acell Pertussis 0.5 ml 10/19/20 14:37 10/19/20 14:54 Diphtheria,Pertussis(Acell),Tetanus Vaccine 0.5 Ml Syringe IM 10/19/20 14:38 0.5 ml .ONCE ONE Administration Ketorolac Tromethamine 60 mg 10/19/20 14:36 10/19/20 14:51 Ketorolac 60 Mg/2 Ml Sdv IM 10/19/20 14:37 60 mg ONETIME ONE Administration - Radiology Interpretation Free Text/Narrative:: R hand X-ray-neg Departure - Departure Time of Disposition: 15:25 Disposition: Home, Self-Care 01 Condition: Good Clinical Impression: Dog bite of right hand Qualifiers: Encounter type: initial encounter Qualified Code(s): S61.451A - Open bite of right hand, initial encounter; W54.0XXA - Bitten by dog, initial encounter - Discharge Information *PRESCRIPTION DRUG MONITORING PROGRAM REVIEWED*: Not Applicable *COPY OF PRESCRIPTION DRUG MONITORING REPORT IN PATIENT HINA: Not Applicable Instructions: Animal Bite, Adult, [id number] Referrals: Noelle Velazquez DO [Primary Care Provider] - Forms: ED Department Discharge Additional Instructions: Elevate your hand to reduce pain/swelling. Wash wound 2-3 times per day with soap and water. Take Augmentin every 12 hrs with food until gone. For pain relief take ibuprofen and/or acetaminophen per package instructions. Recheck for signs of infection. If you cannot prove that the dog is UTD on its rabies vaccines within the next 2-3 days you need to present for rabies vaccines, discuss with your provider. Sepsis Event Note (ED) - Evaluation Sepsis Screening Result: No Definite Risk - Focused Exam Vital Signs: Vital Signs Temp Pulse Resp BP Pulse Ox 10/19/20 14:38 36.8 C 66 20 119/66 100 10/19/20 14:25 36.8 C 66 20 119/66 100 - My Orders Last 24 Hours: My Active Orders 10/19/20 14:37 Vaccines to be Administered [RC] PER UNIT ROUTINE Hand Comp Min 3V Rt [CR] Stat - Assessment/Plan Last 24 Hours: My Active Orders 10/19/20 14:37 Vaccines to be Administered [RC] PER UNIT ROUTINE Hand Comp Min 3V Rt [CR] Stat
--- NOTE | 2020-10-20 10:49 | CR ---
Hand Comp Min 3V Rt CLINICAL HISTORY: Dog bite FINDINGS: There is no acute fracture or dislocation of the hand. There is no radiopaque foreign body. Impression: Negative
== END 2020-10-19 15:48 | disposition home or self-care (01) ==
LOC: JP.ED 14:13
DX: S61.451A Open bite of right hand, initial encounter (principal); Z23 Encounter for immunization; Z72.0 Tobacco use; Z88.5 Allergy status to narcotic agent; Z88.1 Allergy status to other antibiotic agents; Z88.6 Allergy status to analgesic agent; Z79.899 Other long term (current) drug therapy; W54.0XXA Bitten by dog, initial encounter
CPT/HCPCS: 73130-26-RT; 73130-RT; 90471; 90715; 96372; 99283; A9270-GY; J1885

== ENCOUNTER 2021-06-10 03:07 | Emergency (ER) | payer MEDICAID ==
[2021-06-10 03:24] VITALS: BP 115/72; PULSE 94
--- NOTE | 2021-06-10 03:27 | EDM.PDOC ---
ED HPI GENERAL MEDICAL PROBLEM - General Chief Complaint: Respiratory Problem Stated Complaint: COUGH Time Seen by Provider: 06/10/21 03:17 Source of Information: Reports: Patient History Limitations: Reports: No Limitations - History of Present Illness INITIAL COMMENTS - FREE TEXT/NARRATIVE: He is a 31-year-old female presenting to the ED for evaluation of respiratory difficulty. The patient was recently started on azithromycin and prednisone for acute bronchitis after her kids contracted RSV. She is normally cared for by Dr. Velazquez. It appears her last Covid test was in April 2021. She reportedly has increasing shortness of breath and a cough producing thick yellow sputum. She does smoke. She has increased fatigue and chest tightness. She did use an inhaler that she found at home earlier today with some improvement. She does report that she had a fever of 101.5 F today. She is having chest tightness and chest pain with coughing. - Related Data Allergies Allergy/AdvReac Type Severity Reaction Status Date / Time acetaminophen Allergy Vomiting Verified 06/10/21 03:25 [From Darvocet-N 100] codeine phosphate Allergy Rash Verified 06/10/21 03:25 [From Tylenol-Codeine #3] propoxyphene napsylate Allergy Vomiting Verified 06/10/21 03:25 [From Darvocet-N 100] doxycycline AdvReac Nausea and Verified 06/10/21 03:25 Vomiting Home Meds: Home Meds Gabapentin [Neurontin] 300 mg PO BID 01/28/18 [History] Multivitamin [Multivitamins] 1 tab PO DAILY 01/28/18 [History] Buprenorphine/Naloxone [Buprenorphine-Naloxone 8 MG-2 MG] 1 tab PO DAILY 10/19/20 [History] Omeprazole 1 tab PO DAILY 10/19/20 [History] Azithromycin 1 tab PO ASDIRECTED 06/10/21 [History] Methylphenidate [Ritalin] 4 tab PO DAILY 06/10/21 [History] OLANZapine [ZyPREXA] 1 tab PO BEDTIME 06/10/21 [History] predniSONE [Prednisone] 2 tab PO DAILY 06/10/21 [History] Past Medical History Cardiovascular History: Reports: None Respiratory History: Reports: None Genitourinary History: Reports: UTI, Recurrent [employer] History: Reports: Musculoskeletal History: Reports: Back Pain, Chronic, Fracture, Other (See Below) Other Musculoskeletal History: Current fracture right wrist Neurological History: Reports: None Psychiatric History: Reports: None Endocrine/Metabolic History: Reports: None Hematologic History: Reports: B12 Deficiency Immunologic History: Reports: None Oncologic (Cancer) History: Reports: None Dermatologic History: Reports: None - Infectious Disease History Infectious Disease History: Reports: None - Past Surgical History Head Surgeries/Procedures: Reports: None HEENT Surgical History: Reports: Oral Surgery Cardiovascular Surgical History: Reports: None Respiratory Surgical History: Reports: None GI Surgical History: Reports: Bariatric Procedure, Cholecystectomy Endocrine Surgical History: Reports: None Neurological Surgical History: Reports: None Musculoskeletal Surgical History: Reports: Other (See Below) Other Musculoskeletal Surgeries/Procedures:: R L4, L5 BULDGING DISC REPAIR Oncologic Surgical History: Reports: None Dermatological Surgical History: Reports: None Social & Family History - Caffeine Use Caffeine Use: Reports: Coffee, Soda Caffeine Use Comment: 6 pack day ED ROS GENERAL - Review of Systems Review Of Systems: See Below Constitutional: Reports: Fever, Chills HEENT: Reports: Rhinitis, Sinus Problem Respiratory: Reports: Shortness of Breath, Wheezing, Cough, Sputum Cardiovascular: Reports: Chest Pain (With coughing) Endocrine: Reports: Fatigue GI/Abdominal: Reports: No Symptoms : Reports: No Symptoms Musculoskeletal: Reports: No Symptoms Skin: Reports: No Symptoms Neurological: Reports: Headache Psychiatric: Reports: Anxiety Hematologic/Lymphatic: Reports: No Symptoms Immunologic: Reports: No Symptoms ED EXAM, GENERAL - Physical Exam Exam: See Below Exam Limited By: No Limitations General Appearance: Alert, Anxious, Moderate Distress Eye Exam: Bilateral Eye: EOMI, PERRL Nose: Nasal Swelling, Nasal Drainage (Purulent discharge) Throat/Mouth: Normal Inspection, Normal Lips, Normal Oropharynx, Normal Voice, No Airway Compromise Head: Atraumatic, Normocephalic Neck: Normal Inspection, Supple. No: Lymphadenopathy (R), Lymphadenopathy (L) Respiratory/Chest: No Respiratory Distress, No Accessory Muscle Use, Wheezing (Inspiratory and expiratory wheezing) Cardiovascular: Normal Peripheral Pulses, Regular Rate, Rhythm, No Murmur Peripheral Pulses: 2+: Radial (L), Radial (R) GI/Abdominal: Normal Bowel Sounds, Soft, Non-Tender Neurological: Alert, Oriented, Normal Cognition, No Motor/Sensory Deficits Psychiatric: Normal Affect, Anxious Skin Exam: Warm, Dry, Intact, Normal Color Course - Radiology Interpretation Free Text/Narrative:: I reviewed the patient's 1 view chest x-ray which shows normal cardiopulmonary silhouette without evidence for any acute consolidation, reticular infiltrates, or hilar adenopathy. - Re-Assessments/Exams Free Text/Narrative Re-Assessment/Exam: 06/10/21 04:00 I reviewed the patient's chest x-ray showing no acute consolidation, reticular infiltrates or perihilar adenopathy. The patient likely has acute on chronic bronchitis. CBC was performed showing a significant cocytosis at 16.1 with 86% neutrophils. Her hemoglobin is 11.9 with hematocrit of 36.7 and platelet count of 414,000. The basic metabolic panel has a sodium 142, potassium of 4.1, chloride 104, bicarbonate 25, BUN of 18 with a creatinine of 0.9 and a glucose of 153. C-reactive protein is elevated at 6.99. RSV positive, but Covid and influenza are negative. The patient has been started on azithromycin Z-Sam as well as prednisone and the prednisone could cause a leukocytosis. She has been coughing up thick yellow sputum. As an incidental patient has no difficulty in continuing smoking. She apparently found an inhale r in her house but it is not hers so I suppose we will prescribe her her own inhaler for bronchodilation. She is already on azithromycin which should not only treat infection but also reduce inflammation in the bronchi. She is already on prednisone to further reduce inflammation in the bronchi. We will give her a small amount of Toradol to treat her pain with coughing. At this time I believe she is suitable for discharge in satisfactory condition. The Toradol and albuterol were sent out to the [facility]. Departure - Departure Time of Disposition: 04:39 Disposition: Home, Self-Care 01 Clinical Impression: Chest wall pain, RSV bronchiolitis - Discharge Information Instructions: Chest Wall Pain, [id number], Acute Bronchitis, Adult, [id number] Referrals: PCP,None [Primary Care Provider] - Care Plan Goals: Continue your azithromycin and prednisone as before. I have prescribed an albuterol inhaler to help with the breathing as well as Toradol to help with the pain associated with coughing. Follow-up with your primary care provider if not improving. Your blood work and chest x-ray today showed that you likely have acute bronchiolitis and your RSV test is positive today. You are negative for COVID-19 and for influenza. - Problem List & Annotations (1) Chest wall pain SNOMED Code(s): 042677510 Code(s): R07.89 - OTHER CHEST PAIN Status: Acute Priority: Medium Current Visit: Yes (2) RSV bronchiolitis SNOMED Code(s): 19983616 Code(s): J21.0 - ACUTE BRONCHIOLITIS DUE TO RESPIRATORY SYNCYTIAL VIRUS Status: Acute Priority: Medium Current Visit: Yes - Problem List Review Problem List Initiated/Reviewed/Updated: Yes
[2021-06-10 04:22] LABS: CORONAVIRUS COVID-19 NAA NEGATIVE (NEGATIVE)
--- NOTE | 2021-06-10 04:23 | CRLCR ---
For Patients: As a result of the Century Cures Act, medical imaging exams and procedure reports are released immediately into your electronic medical record. You may view this report before your referring provider. If you have questions, please contact your health care provider. HISTORY: Dyspnea. COMPARISON: Chest two views from 11/07/2012 FINDINGS: A portable erect AP view of the chest was obtained at 0400 hours. The lungs remain clear. No focal or diffuse infiltrates are present. The heart has increased in size and is now top normal in size. The mediastinum is normal in appearance. The osseous structures are normal in appearance for the patient`s age. IMPRESSION: Increase in heart size, top normal. Otherwise normal portable chest single view. Dictated by Santos Rubin MD @ 06/10/2021 4:21:55 AM (Electronically Signed)
== END 2021-06-10 04:59 | disposition home or self-care (01) ==
LOC: JP.ED 03:07
DX: J21.0 Acute bronchiolitis due to respiratory syncytial virus (principal); Z88.5 Allergy status to narcotic agent; Z79.899 Other long term (current) drug therapy
CPT/HCPCS: 0241U; 36415; 71045; 80048; 85025; 86140; 99285